=== PATIENT | female | born 1980 | race Two or more races ===

== ENCOUNTER 2017-12-18 18:26 | Emergency (ER) | payer MEDICAID, OTHER ==
[~2017-12-18] VITALS: Ht 165.1 cm; Wt 67.1 kg
[2017-12-18 18:51] VITALS: BP 110/75
== END 2017-12-18 21:49 | disposition left against medical advice (07) ==
LOC: ER 18:26
DX: M79.604 Pain in right leg (principal); Z53.21 Procedure and treatment not carried out due to patient leaving prior to being seen by health care provider